=== PATIENT | male | born 1935 | race Caucasian/White ===

== ENCOUNTER 2017-02-27 13:35 | Observation (INO) ==
--- NOTE | 2017-02-27 14:09 | Emergency Department Note ---
Disposition Clinical Impression: Weakness on left side of face Cerebrovascular accident Qualifiers: CVA mechanism: unspecified Qualified Code(s): I63.9 - Cerebral infarction, unspecified Disposition: Admitted As Inpatient Condition: Fair Time of Disposition: 19:02 Neuro HPI - General Chief Complaint: ED Neuro Symptoms/Deficit Stated Complaint: Neuro Symptoms x3 days Time Seen by Provider: 02/27/17 13:49 Source: patient Limitations: no limitations Nursing Notes Reviewed: Yes Vital Signs Reviewed: Yes - History of Present Illness HPI Narrative: 81-year-old male who complains of left-sided facial droopiness 3 days. Patient has never had a history of CVA: TIA/stroke but has a cardiac history for A. fib, NE status post stents 2 in 1999 and and an late . Patient denies any chest pain. He states he has problems with closing his left eye, and keeping fluid in his mouth and periodic slurring his speech. Patient denies any viral symptoms over the past 3 weeks - Related Data Home Medications: Home Medications Medication Instructions Recorded Confirmed Aspirin [Lo-Dose Aspirin EC] 81 mg PO DAILY 02/27/17 02/27/17 B2/Vits A,C,E/Lut/Zeaxanth/Min 1 tab PO DAILY 02/27/17 02/27/17 [Icaps Tablet] Clopidogrel [Plavix] 75 mg PO DAILY 02/27/17 02/27/17 Metoprolol [Lopressor] 50 mg PO BID 02/27/17 02/27/17 Nitroglycerin [Nitrostat] 0.4 mg SL Q5M PRN 02/27/17 02/27/17 Omeprazole [PriLOSEC] 20 mg PO DAILY 02/27/17 02/27/17 Simvastatin [Zocor] 40 mg PO HS 02/27/17 02/27/17 metFORMIN [Glucophage] 500 mg PO BID 02/27/17 02/27/17 Allergies/Adverse Reactions: Allergies Allergy/AdvReac Type Severity Reaction Status Date / Time Penicillins [PCN] Allergy Hives Verified 02/27/17 13:38 All systems ED: reviewed and negative except as stated. Review of Systems: As Per HPI Constitutional: Denies: fever, chills, weakness ENT ED: Denies: congestion Cardiovascular: Denies: chest pain Respiratory: Denies: cough, dyspnea Gastrointestinal: Denies: abdominal pain, nausea, vomiting, diarrhea Genitourinary: Denies: urgency, dysuria, frequency Past Medical History - Past Medical History Attestation: Yes The following information was validated with the patient. Source: patient, nursing notes reviewed Medical history: Reports: atrial fibrillation, diabetes, hyperlipidemia, hypertension, myocardial infarction Psychiatric history: Reports: no psych history - Social History Smoking Status: Never smoker Smokeless Tobacco Status: No Alcohol use: Reports: rarely Drug use: Reports: none Physical Exam Vital Signs Temperature 97.5 F L 02/27/17 13:38 Pulse Rate 87 02/27/17 13:38 Respiratory Rate 14 02/27/17 13:38 Blood Pressure 163/87 02/27/17 13:38 O2 Sat by Pulse Oximetry 98 02/27/17 13:38 Temperature 97.5 F L 02/27/17 13:38 Pulse Rate 87 02/27/17 13:38 Respiratory Rate 14 02/27/17 13:38 Blood Pressure 163/87 02/27/17 13:38 O2 Sat by Pulse Oximetry 98 02/27/17 13:38 Oxygen Delivery Oxygen Delivery Room Air 81-year-old male who is alert and oriented 3 and in no acute distress. Patient has noticeable left-sided facial droop and has inability to fully close his left eye. Patient has no other focal neurologic deficits. No dysdiadochokinesis. Patient has no loss of sensation. Patient has inability to wrinkle her brow on his left side as well. - General Limitations: no limitations General appearance: alert - Head Head exam: atraumatic, normocephalic, normal inspection - Eye Eye exam: Present: normal appearance, PERRL, EOMI - ENT ENT exam: normal exam, normal oropharynx, mucous membranes moist - Neck Neck exam: Present: normal inspection, full ROM, trachea midline - Chest Chest inspection: Present: normal inspection, symmetric chest wall rise - Respiratory Respiratory exam: Present: normal lung sounds bilaterally - Cardiovascular Cardiovascular exam: Present: irregular rhythm, normal heart sounds - Abdominal Exam Abdominal exam: Present: soft, Non-Tender. Absent: tenderness, distention, guarding, rebound, rigidity - Extremities Exam Extremities exam: Present: normal inspection, full ROM, normal capillary refill. Absent: tenderness, pedal edema - Back Exam Back exam: Present: normal inspection, full ROM. Absent: tenderness - Neurological Exam Neurological exam: Present: alert, oriented X3, CN II-XII intact. Absent: motor sensory deficit - Skin Skin exam: Present: warm, dry, intact, normal color Course Vital Signs Temperature 97.5 F L 02/27/17 13:38 Pulse Rate 87 02/27/17 13:38 Respiratory Rate 14 02/27/17 13:38 Blood Pressure 163/87 02/27/17 13:38 O2 Sat by Pulse Oximetry 98 02/27/17 13:38 Temperature 97.4 F L 02/27/17 19:09 Pulse Rate 76 02/27/17 19:09 Respiratory Rate 20 02/27/17 19:09 Blood Pressure 152/74 02/27/17 19:09 O2 Sat by Pulse Oximetry 95 02/27/17 19:09 Oxygen Delivery Oxygen Delivery Room Air Neuro Symptoms/Deficit - MDM Narrative Medical decision making narrative: Differential diagnoses: CVA: Stroke/TIA, ischemic versus hemorrhagic but currently doubt hemorrhagic. Guillain-Babbitt which seems more likely at this period of time secondary of brow with left-sided facial drooping. Patient's lab workup was unremarkable. Patient's head imaging was unremarkable. Current plan is to admit for neurologic follow-up with neurology. After discussion with Dr. Rodrigues he states that he agrees with my assessment and states to place patient on acyclovir 800 mg IV and give him a dose of Solu-Medrol. Further workup will be accomplished to make sure no other intracranial abnormalities exist. This has been accomplished. Patient is doing well. Dr. Burnett the hospitalist has accepted patient for admission at 1508 hrs. - Lab Data Lab results reviewed: Yes I reviewed the patient's lab results. Lab results narrative: Short CBC 02/27/17 Range/Units 14:08 WBC 8.2 (4.3-11.1) K/mcL Hgb 15.8 (12.9-16.9) g/dL Hct 48.1 (37.5-50.1) % Plt Count 134 L (140-400) K/mcL Neutrophils # 5.2 (1.6-8.9) K/mcL BMP 02/27/17 Range/Units 14:08 Sodium 136 (136-145) mEq/L Potassium 4.4 (3.5-5.1) mEq/L Chloride 104 (98-107) mEq/L Carbon Dioxide 26 (23-29) mEq/L BUN 19 (8-23) mg/dL Creatinine 0.91 (0.70-1.30) mg/dL Glucose 158 H (70-105) mg/dL Calcium 9.7 (8.6-10.3) mg/dL Cardiac Enzymes 02/27/17 Range/Units 20:00 Troponin I < 0.03 (< 0.04) ng/mL Result diagrams: 02/27/17 14:08 02/27/17 14:08 Lab Results 02/27/17 02/27/17 02/27/17 Range/Units 13:41 14:08 14:08 WBC 8.2 (4.3-11.1) K/mcL RBC 5.56 H (4.19-5.50) M/mcL Hgb 15.8 (12.9-16.9) g/dL Hct 48.1 (37.5-50.1) % MCV 86.5 (83.0-100.0) fL MCH 28.4 (28.0-33.3) pg MCHC 32.8 (31.6-35.5) g/dL RDW 12.6 (11.5-14.5) % Plt Count 134 L (140-400) K/mcL MPV 11.7 (9.4-12.4) fL Immature Gran % 0.7 (0-4) % Seg Neutrophils % 63.0 % Lymphocytes % 25.5 % Monocytes % 8.9 % Eosinophils % 1.2 % Basophils % 0.7 % Neutrophils # 5.2 (1.6-8.9) K/mcL Lymphocytes # 2.1 (0.6-4.6) K/mcL Monocytes # 0.7 (0.0-1.3) K/mcL Eosinophils # 0.1 (0.0-0.6) K/mcL Basophils # 0.1 (0.0-0.2) K/mcL Sodium 136 (136-145) mEq/L Potassium 4.4 (3.5-5.1) mEq/L Chloride 104 (98-107) mEq/L Carbon Dioxide 26 (23-29) mEq/L BUN 19 (8-23) mg/dL Creatinine 0.91 (0.70-1.30) mg/dL Est GFR ( Amer) > 60 (> 60) Est GFR (Non-Af Amer) > 60 (> 60) BUN/Creatinine Ratio 21 (6-26) Glucose 158 H (70-105) mg/dL POC Glucose 169 H (58-89) Calculated Osmolality 288 (280-300) Calcium 9.7 (8.6-10.3) mg/dL 02/27/17 Range/Units 18:06 WBC (4.3-11.1) K/mcL RBC (4.19-5.50) M/mcL Hgb (12.9-16.9) g/dL Hct (37.5-50.1) % MCV (83.0-100.0) fL MCH (28.0-33.3) pg MCHC (31.6-35.5) g/dL RDW (11.5-14.5) % Plt Count (140-400) K/mcL MPV (9.4-12.4) fL Immature Gran % (0-4) % Seg Neutrophils % % Lymphocytes % % Monocytes % % Eosinophils % % Basophils % % Neutrophils # (1.6-8.9) K/mcL Lymphocytes # (0.6-4.6) K/mcL Monocytes # (0.0-1.3) K/mcL Eosinophils # (0.0-0.6) K/mcL Basophils # (0.0-0.2) K/mcL Sodium (136-145) mEq/L Potassium (3.5-5.1) mEq/L Chloride (98-107) mEq/L Carbon Dioxide (23-29) mEq/L BUN (8-23) mg/dL Creatinine (0.70-1.30) mg/dL Est GFR ( Amer) (> 60) Est GFR (Non-Af Amer) (> 60) BUN/Creatinine Ratio (6-26) Glucose (70-105) mg/dL POC Glucose 139 H (58-89) Calculated Osmolality (280-300) Calcium (8.6-10.3) mg/dL - Radiology Data Radiology results reviewed: Yes I reviewed the patient's radiology results. Head CT 02/27/17 13:49 IMPRESSION: No acute intracranial abnormality. D/ / Tommy Angeles MD / Tommy Angeles MD Interpreting Provider: Tommy Angeles MD Chest X-Ray 02/27/17 13:56 IMPRESSION: No new acute cardiopulmonary findings D/ / Monika Triana MD / Monika Triana MD Interpreting Provider: Monika Triana MD Brain MRI 02/27/17 19:24 IMPRESSION: Multifocal small-vessel ischemic change with multiple small prior infarcts No acute infarct, mass or acute hemorrhage. D/ / Segun Canales / Segun Canales Interpreting Provider: Segun Canales - EKG Data Rhythm: A.Fib [place]/QRS: normal Interpretation: unchanged when compared to prior tracing (date) NIH Stroke Scale - Level of Consciousness LOC: Alert - LOC Questions LOC Questions: Answers both correctly - LOC Commands LOC Commands: Performs both correctly - Best Gaze Best Gaze: Normal - Visual Visual: No visual loss - Facial Palsy Facial Palsy: Complete absence of movement in upper and lower face - Motor Arms Motor Arm-Left: No drift for 10 seconds Motor Arm-Right: No drift for 10 seconds - Motor Legs Motor Leg-Left: No drift for 5 seconds Motor Leg-Right: No drift for 5 seconds - Limb Ataxia Limb Ataxia: Absent of affected limb too weak to perform exam - Sensory Sensory: Normal - Best Language Best Language: No aphasia - Dysarthria Dysarthria: Normal - Extinction and Inattention Extinction and Inattention: Normal - NIHSS Total Score NIHSS Total Score: 3 TPA Checklist - LKW: 3-4.5 hrs Add. Warnings/Precautions Patient/family understanding: The patient/family members have been counseled and understood the risk, benefit , and alternatives of treatment.
--- NOTE | 2017-02-27 14:09 | Emergency Department Note ---
Disposition Clinical Impression: Weakness on left side of face Cerebrovascular accident Qualifiers: CVA mechanism: unspecified Qualified Code(s): I63.9 - Cerebral infarction, unspecified Disposition: Admitted As Inpatient Condition: Fair General Adult HPI - General Chief complaint: ED Neuro Symptoms/Deficit Stated complaint: Neuro Symptoms x3 days Time Seen by Provider: 02/27/17 13:49 Source: patient Limitations: no limitations Nursing Notes Reviewed: Yes Vital Signs Reviewed: Yes - History of Present Illness Pain Scale: 0 - Related Data Home Medications Medication Instructions Recorded Confirmed Aspirin [Lo-Dose Aspirin EC] 81 mg PO DAILY 02/27/17 02/27/17 B2/Vits A,C,E/Lut/Zeaxanth/Min 1 tab PO DAILY 02/27/17 02/27/17 [Icaps Tablet] Clopidogrel [Plavix] 75 mg PO DAILY 02/27/17 02/27/17 Metoprolol [Lopressor] 50 mg PO BID 02/27/17 02/27/17 Nitroglycerin [Nitrostat] 0.4 mg SL Q5M PRN 02/27/17 02/27/17 Omeprazole [PriLOSEC] 20 mg PO DAILY 02/27/17 02/27/17 Simvastatin [Zocor] 40 mg PO HS 02/27/17 02/27/17 metFORMIN [Glucophage] 500 mg PO BID 02/27/17 02/27/17 Allergies Allergy/AdvReac Type Severity Reaction Status Date / Time Penicillins [PCN] Allergy Hives Verified 02/27/17 13:38 Past Medical History - Past Medical History Medical history: Reports: atrial fibrillation, diabetes, hyperlipidemia, hypertension, myocardial infarction Psychiatric history: Reports: no psych history - Social History Smoking Status: Never smoker Smokeless Tobacco Status: No Alcohol use: Reports: rarely Drug use: Reports: none Physical Exam - General Limitations: no limitations General appearance: alert Course Vital Signs Temperature 97.5 F L 02/27/17 13:38 Pulse Rate 87 02/27/17 13:38 Respiratory Rate 14 02/27/17 13:38 Blood Pressure 163/87 02/27/17 13:38 O2 Sat by Pulse Oximetry 98 02/27/17 13:38 Temperature 97.4 F L 02/27/17 19:09 Pulse Rate 76 02/27/17 19:09 Respiratory Rate 20 02/27/17 19:09 Blood Pressure 152/74 02/27/17 19:09 O2 Sat by Pulse Oximetry 95 02/27/17 19:09 Oxygen Delivery Oxygen Delivery Room Air Medical Decision Making - MDM Narrative Medical decision making narrative: This documentation is done with the assistance of Dragon dictation. Despite efforts to ensure accuracy, there may be inaccuracies in art psychotherapist or spelling and typographical errors. I examined this patient and my medical decision-making was reviewed with the Resident Physician. I agree with the documented findings, disposition and treatment plan as described except to the extent set forth below. Patient seen and evaluated on arrival with Dr. Hartman, I agree with his evaluation management plan, I supervised the care of the patient's stay. Patient 3 days ago was brushing his teeth in the morning and noticed he cannot hold water and left side of his mouth he felt some weakness under his eye. He said it is difficult phrenic close both eyes because the left normal close ossicles the right. He does not have sparing of his forehead. This initially looks like a Hussein's palsy based on her speech is getting a little worsening his sensation weakness on his left side which he does not show on exam. Because this is 3 days ago this is outside the window for stroke alert. However he is getting worked up for stroke. And most likely will need admission. He is in agreement with plan. 1347 hrs.: Patient has an EKG showing possible atrial fibrillation, rate is 89 QRS is 88 QTc is 395 LVH by voltage criteria does have Q waves in inferior leads , when I compare this EKG had back in August it does show an atrial fibrillation and also. Head CT 02/27/17 13:49 IMPRESSION: No acute intracranial abnormality. D/ / Tommy Angeles MD / Tommy Angeles MD Interpreting Provider: Tommy Angeles MD Chest X-Ray 02/27/17 13:56 IMPRESSION: No new acute cardiopulmonary findings D/ / Monika Triana MD / Monika Triana MD Interpreting Provider: Monika Triana MD 1512 hrs. colon with this history this initially sound like a Hussein's palsy but with the extension worsening speech in the subjective weakness on the left side he needs to be ruled out for TIA and CVA. Were spoke with hospitalist agreed to the admission. We will also consult with neurology. Patient's in agreement with the stay. He is artery on aspirin and Plavix so we will give no other antiplatelet drugs at this time and less recommended by neurology. Patient's critical care time excluding any separately billable procedures is 20 minutes - Lab Data Result diagrams: 02/27/17 14:08 02/27/17 14:08 Lab Results 02/27/17 02/27/17 02/27/17 Range/Units 13:41 14:08 14:08 WBC 8.2 (4.3-11.1) K/mcL RBC 5.56 H (4.19-5.50) M/mcL Hgb 15.8 (12.9-16.9) g/dL Hct 48.1 (37.5-50.1) % MCV 86.5 (83.0-100.0) fL MCH 28.4 (28.0-33.3) pg MCHC 32.8 (31.6-35.5) g/dL RDW 12.6 (11.5-14.5) % Plt Count 134 L (140-400) K/mcL MPV 11.7 (9.4-12.4) fL Immature Gran % 0.7 (0-4) % Seg Neutrophils % 63.0 % Lymphocytes % 25.5 % Monocytes % 8.9 % Eosinophils % 1.2 % Basophils % 0.7 % Neutrophils # 5.2 (1.6-8.9) K/mcL Lymphocytes # 2.1 (0.6-4.6) K/mcL Monocytes # 0.7 (0.0-1.3) K/mcL Eosinophils # 0.1 (0.0-0.6) K/mcL Basophils # 0.1 (0.0-0.2) K/mcL Sodium 136 (136-145) mEq/L Potassium 4.4 (3.5-5.1) mEq/L Chloride 104 (98-107) mEq/L Carbon Dioxide 26 (23-29) mEq/L BUN 19 (8-23) mg/dL Creatinine 0.91 (0.70-1.30) mg/dL Est GFR ( Amer) > 60 (> 60) Est GFR (Non-Af Amer) > 60 (> 60) BUN/Creatinine Ratio 21 (6-26) Glucose 158 H (70-105) mg/dL POC Glucose 169 H (58-89) Calculated Osmolality 288 (280-300) Calcium 9.7 (8.6-10.3) mg/dL 02/27/17 Range/Units 18:06 WBC (4.3-11.1) K/mcL RBC (4.19-5.50) M/mcL Hgb (12.9-16.9) g/dL Hct (37.5-50.1) % MCV (83.0-100.0) fL MCH (28.0-33.3) pg MCHC (31.6-35.5) g/dL RDW (11.5-14.5) % Plt Count (140-400) K/mcL MPV (9.4-12.4) fL Immature Gran % (0-4) % Seg Neutrophils % % Lymphocytes % % Monocytes % % Eosinophils % % Basophils % % Neutrophils # (1.6-8.9) K/mcL Lymphocytes # (0.6-4.6) K/mcL Monocytes # (0.0-1.3) K/mcL Eosinophils # (0.0-0.6) K/mcL Basophils # (0.0-0.2) K/mcL Sodium (136-145) mEq/L Potassium (3.5-5.1) mEq/L Chloride (98-107) mEq/L Carbon Dioxide (23-29) mEq/L BUN (8-23) mg/dL Creatinine (0.70-1.30) mg/dL Est GFR ( Amer) (> 60) Est GFR (Non-Af Amer) (> 60) BUN/Creatinine Ratio (6-26) Glucose (70-105) mg/dL POC Glucose 139 H (58-89) Calculated Osmolality (280-300) Calcium (8.6-10.3) mg/dL
[2017-02-27 14:16] LABS: Basophils # 0.1 K/mcL (0.0-0.2); Basophils % 0.7 %; Eosinophils # 0.1 K/mcL (0.0-0.6); Eosinophils % 1.2 %; Hematocrit 48.1 % (37.5-50.1); Hemoglobin 15.8 g/dL (12.9-16.9); Immature Granulocytes % 0.7 % (0-4); Lymphocytes # 2.1 K/mcL (0.6-4.6); Lymphocytes % 25.5 %; Mean Corpuscular HGB Conc 32.8 g/dL (31.6-35.5); Mean Corpuscular Hemoglobin 28.4 pg (28.0-33.3); Mean Corpuscular Volume 86.5 fL (83.0-100.0); Mean Platelet Volume 11.7 fL (9.4-12.4); Monocytes # 0.7 K/mcL (0.0-1.3); Monocytes % 8.9 %; Neutrophils # 5.2 K/mcL (1.6-8.9); Platelet Count 134 K/mcL (140-400); Red Blood Count 5.56 M/mcL (4.19-5.50); Red Cell Distribution Width 12.6 % (11.5-14.5)
[2017-02-27 14:28] LABS: BUN/Creatinine Ratio 21 (6-26); Blood Urea Nitrogen 19 mg/dL (8-23); Calcium 9.7 mg/dL (8.6-10.3); Carbon Dioxide 26 mEq/L (23-29); Chloride 104 mEq/L (98-107); Glucose 158 mg/dL (70-105); Osmolality,Calculated 288 (280-300); Potassium 4.4 mEq/L (3.5-5.1); Sodium 136 mEq/L (136-145); eGFR For African Americans > 60 (> 60); eGFR For Non-African Americans > 60 (> 60)
[2017-02-27] MEDS ORDERED: methylPREDNISolone 125 MG/2 ML VIAL IVP ONE (15:49)
[2017-02-27] MEDS ORDERED: Acyclovir 800 MG in D5% in Water 250 ML IVPB ONE (15:49)
[2017-02-27] MEDS ORDERED: Ondansetron 4 MG/2 ML VIAL IVP PRN (19:20)
[2017-02-27] MEDS ORDERED: Naloxone 0.4 MG/ML INJ IVP PRN (19:20)
[2017-02-27] MEDS ORDERED: Acetaminophen 325 MG TABLET PO PRN (19:20)
--- NOTE | 2017-02-27 20:11 | Internal Med History&Physical ---
<Echo Esteves - Last Filed: 02/27/17 20:13> Date of Encounter: 02/27/17 Time of Encounter: 20:06 Assessment and Plan (1) CVA (cerebral vascular accident) Current visit: Yes Status: Suspected 1 3 days ago patient experienced left-sided facial droop as well as unable to close left eye. No facial paresthesia, no other focal deficits. He does have a history of paroxysmal atrial fibrillation which has vascular of 4 for age diabetes and hypertension. He states that he was supposed to start Eliquis, and stop Plavix in September however he could not afford the medication and continue with his Plavix. CT of head is negative for any intracranial abnormalities. We will obtain MRI. -NIHSS neuro assessment -He had bilateral carotid duplex in September 2016:The bilateral carotid arteries have minimal plaque throughout. -Echo was completed September 2016:Low normal LV systolic function. There is evidence of mild diastolic dysfunction of the left ventricle. Normal right ventricular size and function. Mild aortic regurgitation. Mild mitral regurgitation. Mild tricuspid regurgitation. Mild pulmonic regurgitation. No pulmonary hypertension. -Neurology has been consult to Qualifiers: CVA mechanism: unspecified Qualified Code(s): I63.9 - Cerebral infarction, unspecified (2) Diabetes mellitus Current visit: Yes Status: Acute Accu-Cheks before meals at bedtime with slight scale insulin will resume oral medications upon discharge Qualifiers: Diabetes mellitus type: type 2 Diabetes mellitus complication status: without complication Diabetes mellitus senior living insulin use: without exterminator termite use Qualified Code(s): E11.9 - Type 2 diabetes mellitus without complications (3) HTN (hypertension) Current visit: Yes Status: Acute Presently his blood pressure is controlled we will continue with home medications Qualifiers: Hypertension type: essential hypertension Qualified Code(s): I10 - Essential (primary) hypertension (4) Paroxysmal A-fib Current visit: Yes Status: Acute 1 patient is on metoprolol which we will continue-he was supposed to initiate Eliquis in September however was unable to afford he continued with aspirin and Plavix. His chads score is 4 for age diabetes and high blood pressure (5) DVT prophylaxis Current visit: Yes Status: Acute Lovenox subcutaneous Internal Medicine - H&P: HPI Chief complaint: L sided facial droop Admitted From: Emergency Dept Plans for Post Hospital Care: Home History of present illness: Mr. Wright is a 81 year old male past alcohol history of paroxysmal atrial fibrillation diabetes hyperlipidemia hypertension and DC. Approximately 3 days ago patient was brushing his teeth andthat he could not hold water on the left side of his mouth. He was also experiencing weakness on the left side of his face under his eye. He was having difficulty closing his left eye. He denies any vision changes difficulty chewing or swallowing or extremity weakness. He does have a history of CAD with a stent placed in 2009. As well as atrial fibrillation, he reports that in September 2016 he was seen by cardiology who advised him to stop Plavix and place him on Eliquis. However he did not take the Eliquis because he cannot afford the medication. He continued to take Plavix. He denies any previous strokes or head injuries. He presented to the ER with the above complaints. Lab work was obtained and was unremarkable chest x-ray was clear CT with no acute intracranial abnormalities. ER physician did speak with neurology is some concern for possible Krystal Acton patient was given Solu-Medrol and acyclovir. He has been admitted for further workup and evaluation. Presently patient does not appear to be in any respiratory distress and he is hemodynamically stable at this time. Past Med Surg Social Fam HX - Past Medical History Medical history: atrial fibrillation, diabetes, hyperlipidemia, hypertension, myocardial infarction Psychiatric history: no psych history - Social History Smoking Status: Never smoker Smokeless Tobacco Status: No Alcohol use: rarely Drug use: none - Family History Father Living Status: Age at : 83 Cause of : heart disease Internal Medicine - H&P: Meds Aspirin [Lo-Dose Aspirin EC] 81 mg PO DAILY 02/27/17 [History] B2/Vits A,C,E/Lut/Zeaxanth/Min [Icaps Tablet] 1 tab PO DAILY 02/27/17 [History] Clopidogrel [Plavix] 75 mg PO DAILY 02/27/17 [History] Metoprolol [Lopressor] 50 mg PO BID 02/27/17 [History] Nitroglycerin [Nitrostat] 0.4 mg SL Q5M PRN 02/27/17 [History] Omeprazole [PriLOSEC] 20 mg PO DAILY 02/27/17 [History] Simvastatin [Zocor] 40 mg PO HS 02/27/17 [History] metFORMIN [Glucophage] 500 mg PO BID 02/27/17 [History] 3 Allergy/AdvReac Type Severity Reaction Status Date / Time Penicillins [PCN] Allergy Hives Verified 02/27/17 13:38 All Systems PM: A 10-system review of systems was performed and is negative for pertinent findings except as documented above in the HPI. - Constitutional Constitutional: no chills, no fever(s), no night sweats - EENT Eyes: no change in vision, no discharge, no pain, no photophobia Nose, mouth and throat: no dysphagia, no nasal discharge, no neck pain, no sore throat - Cardiovascular Cardiovascular ROS IM: no chest pain, no diaphoresis, no dyspnea, no lightheadedness, no palpitations, no syncope - Respiratory Respiratory: no cough, no dyspnea, no wheezing, no excessive phlegm production - Gastrointestinal Gastrointestinal: no abdominal pain, no diarrhea, no hematemesis, no hematochezia, no melena, no nausea, no vomiting - Musculoskeletal Musculoskeletal ROS IM: no numbness, no tingling - Integumentary Integumentary IM: no rash, no unusual bruising - Neurological Neurological ROS: abnormal speech, other Additional comments: Left-sided facial droop-difficulty closing left eye - Constitutional Vitals: Temp Pulse Resp BP Pulse Ox 97.4 F L 76 20 152/74 95 02/27/17 19:09 02/27/17 19:09 02/27/17 19:09 02/27/17 19:09 02/27/17 19:09 General appearance: Present: A&O X 3 - Head Head exam: Present: atraumatic, normocephalic - Eye Eye exam: Present: PERRL, conjuntiva pink, sclera anicteric Pupils: Present: PERRL - Neck Neck exam general surgery: Present: supple, trachea midline. Absent: lymphadenopathy - Respiratory Respiratory exam: Present: CTAB. Absent: accessory muscle use, rales, rhonchi, wheezes - Cardiovascular Cardiovascular exam: Present: irregular rhythm, +S1, +S2. Absent: diastolic murmur, gallop, rubs, systolic murmur - GI/Abdominal GI/Abdominal exam: Present: normal bowel sounds, soft, no peritoneal signs. Absent: distended, tenderness - Extremities Exam Extremities exam: Present: warm, radial pulses palpable and symmetrical. Absent : calf tenderness, cyanotic, pedal edema - Neurological Exam Neurological exam: Present: oriented X3, no focal deficits, strengths equal and symetr throughout, facial droop. Absent: pronater drift, speech deficit - Expanded Neurological Exam Patient oriented to: Present: person, place, time Cranial Nerves: EOM's intact PM: Normal, gag reflex PM: Normal, nystagmus PM: Normal, tongue deviation PM: Abnormal Right Cerebellar function: finger to nose: Normal, heel to matos: Normal, Romberg: Normal Neuro motor strength exam: LUE: 5, RUE: 5, LLE: 5, RLE: 5 Coma Scale Eye Opening: Spontaneous Coma Scale Motor Response: Obeys Commands Coma Scale Verbal Response: Oriented Coma Scale Total: 15 - Skin Skin exam: Present: dry, intact Internal Med - H&P Results - Labs CBC & Chem 7: 02/27/17 14:08 02/27/17 14:08 - EKG Data Prior EKG available for review: yes EKG comments: 02/27/17 20:29 Atrial fibrillation - Diagnostic Studies Other Images Additional comments: Head CT 02/27/17 13:49 IMPRESSION: No acute intracranial abnormality. D/ / Tommy Angeles MD / Tommy Angeles MD Interpreting Provider: Tommy Angeles MD Chest X-Ray 02/27/17 13:56 IMPRESSION: No new acute cardiopulmonary findings D/ / Monika Triana MD / Monika Triana MD Interpreting Provider: Monika Triana MD <Anival Moscoso H - Last Filed: 02/27/17 22:26> Date of Encounter: 02/27/17 Internal Medicine - H&P: HPI History of present illness: Mr. Wright is a 81 year old male All Systems PM: A 10-system review of systems was performed and is negative for pertinent findings except as documented above in the HPI. - Constitutional Vitals: Temp Pulse Resp BP Pulse Ox 97.4 F L 76 20 152/74 95 02/27/17 19:09 02/27/17 19:09 02/27/17 19:09 02/27/17 19:09 02/27/17 19:09 Internal Med - H&P Results - Labs CBC & Chem 7: 02/27/17 14:08 02/27/17 14:08 Labs: Cardiac Enzymes 02/27/17 Range/Units 20:00 Troponin I < 0.03 (< 0.04) ng/mL - Impressions ITS Impressions Brain MRI 02/27/17 19:24 IMPRESSION: Multifocal small-vessel ischemic change with multiple small prior infarcts No acute infarct, mass or acute hemorrhage. 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 I have reviewed and agree with the care plan. History and Exam by me shows:
[2017-02-27] MEDS ORDERED: Nitroglycerin 0.4 MG TAB.SUBL SL PRN (20:31)
[2017-02-27] MEDS ORDERED: D5% in Water 1,000 ML IVC PRN (20:32)
[2017-02-27] MEDS ORDERED: Dextrose Gel 15 GM/37.5 ML TUBE PO PRN ×2 (20:32)
[2017-02-27] MEDS ORDERED: *HR* Dextrose 50 % in Water (Syg) 50 ML SYRINGE IVP PRN (20:32)
[2017-02-27] MEDS ORDERED: Insulin LISPRO 300 UNITS/3 ML VIAL SQ SCH (21:00)
[2017-02-27] MEDS ORDERED: *HR* Warfarin 5 MG TABLET PO SCH (22:24)
[2017-02-27] MEDS: *HR* Enoxaparin 80 MG/0.8 ML SYRINGE SQ SCH (22:53)
[2017-02-28 00:59] LABS: Basophils % 0.3 %; Hematocrit 44.9 % (37.5-50.1); Hemoglobin 15.5 g/dL (12.9-16.9); Immature Granulocytes % 0.7 % (0-4); Lymphocytes # 1.1 K/mcL (0.6-4.6); Lymphocytes % 15.2 %; Mean Corpuscular HGB Conc 34.5 g/dL (31.6-35.5); Mean Corpuscular Hemoglobin 29.2 pg (28.0-33.3); Mean Corpuscular Volume 84.6 fL (83.0-100.0); Mean Platelet Volume 12.2 fL (9.4-12.4); Monocytes # 0.1 K/mcL (0.0-1.3); Monocytes % 0.7 %; Neutrophils # 6.1 K/mcL (1.6-8.9); Platelet Count 124 K/mcL (140-400); Red Blood Count 5.31 M/mcL (4.19-5.50); Red Cell Distribution Width 12.5 % (11.5-14.5); Segmented Neutrophils % 83.1 %
[2017-02-28 01:24] LABS: BUN/Creatinine Ratio 19 (6-26); Blood Urea Nitrogen 18 mg/dL (8-23); Calcium 9.5 mg/dL (8.6-10.3); Carbon Dioxide 23 mEq/L (23-29); Chloride 103 mEq/L (98-107); Chol/HDL Ratio 3.7 (0-4.9); Cholesterol 159 mg/dL (< 200); Glucose 311 mg/dL (70-105); HDL Cholesterol 43 mg/dL (40-59); LDL Cholesterol,Calculated 101 mg/dL (0-99); Magnesium 1.9 mg/dL (1.6-2.6); Osmolality,Calculated 292 (280-300); Potassium 4.3 mEq/L (3.5-5.1); Sodium 134 mEq/L (136-145); Triglycerides 73 mg/dL (< 150); eGFR For African Americans > 60 (> 60); eGFR For Non-African Americans > 60 (> 60)
[2017-02-28] MEDS: *HR* Enoxaparin 80 MG/0.8 ML SYRINGE SQ SCH (05:43)
[2017-02-28] MEDS ORDERED: *HR* Enoxaparin 40 MG/0.4 ML SYRINGE SQ SCH (07:00)
[2017-02-28] MEDS ORDERED: Aspirin Enteric Coated 81 MG Tablet PO SCH (09:00)
[2017-02-28] MEDS: Insulin LISPRO 300 UNITS/3 ML VIAL SQ SCH ×2 (09:46→12:56)
--- NOTE | 2017-02-28 11:02 | Neurology - Consult Note ---
<Sonu Pepe - Last Filed: 02/28/17 12:57> Date of Encounter: 02/28/17 Time of Encounter: 10:56 Assessment and Plan (1) Weakness on left side of face Current Visit: Yes Status: Acute patient came in with left sided facial drooping, weakness, and increased left eye lacrimation Head CT unremarkable brain MRI showed multifocal small vessel ischemic changes with multiple prior small infarcts, but no acute mass effect or hemorrhage. lipid panel reviewed. echo from 10/10/16 showed LVEF 50%, normal LV systolif cuntion, mild diastolic dysfunciton, normal RV size and function, mild aortic regurg, mild mitral regurg , mild pulmonic regurg, no pulmonary HTN. Etiology likely secondary to [place] Palsy based on symptoms Plan: discharge on medrol dose pack please discharge on valcyclovir x7 days (2) Hussein's palsy Current Visit: Yes Status: Acute as above (3) Diabetes mellitus Current Visit: Yes Status: Acute per primary Qualifiers: Diabetes mellitus type: type 2 Diabetes mellitus complication status: without complication Diabetes mellitus medical terminologist insulin use: without medical terminologist use Qualified Code(s): E11.9 - Type 2 diabetes mellitus without complications (4) HTN (hypertension) Current Visit: Yes Status: Acute per primary Qualifiers: Hypertension type: essential hypertension Qualified Code(s): I10 - Essential (primary) hypertension (5) Paroxysmal A-fib Current Visit: Yes Status: Acute per primary History of Present Illness Chief complaint: left sided facial weakness HPI: Mr. Wright is a 81 year old male with PMHx of alcohol abuse, paroxysmal Afib, HTN , HLD, CAD with stent placed several years ago, hx of [place]. Patient arrived to [facility] yesterday with chief complaint of left sided facial weakness, predominantly on the left side of his mouth, and a little under his left eye. He also reported continues lacrimation from his left eye. Patient states these symptoms started on Saturday. He mostly had trouble holding water in his mouth. He also reported left sided facial drooping, which his said also started on saturday but has been getting progressively worse over the past few days. patient states that he has no prior history of strokes. Of note, he does have history of paroxysmal Afib. it was recommended by cardiology back in September that he be switched to Eliquis from plavix, but patient could not afford this. He is currently being bridged with lovenox and coumadin. patient denies nausea, vomiting, diarrhea,fever, chills, chest pain, shortness of breath. he denies any further problems today. Past Med Surg Social Fam HX - Past Medical History Medical history: atrial fibrillation, diabetes, hyperlipidemia, hypertension, myocardial infarction Psychiatric history: no psych history - Social History Smoking Status: Never smoker Smokeless Tobacco Status: No Alcohol use: rarely Drug use: none - Family History Father Adopted: No Hx Family Cardiac Disorders: Yes Medications and Allergies Aspirin [Lo-Dose Aspirin EC] 81 mg PO DAILY 02/27/17 [History] B2/Vits A,C,E/Lut/Zeaxanth/Min [Icaps Tablet] 1 tab PO DAILY 02/27/17 [History] Clopidogrel [Plavix] 75 mg PO DAILY 02/27/17 [History] Metoprolol [Lopressor] 50 mg PO BID 02/27/17 [History] Nitroglycerin [Nitrostat] 0.4 mg SL Q5M PRN 02/27/17 [History] Omeprazole [PriLOSEC] 20 mg PO DAILY 02/27/17 [History] Simvastatin [Zocor] 40 mg PO HS 02/27/17 [History] metFORMIN [Glucophage] 500 mg PO BID 02/27/17 [History] 3 Allergy/AdvReac Type Severity Reaction Status Date / Time Penicillins [PCN] Allergy Hives Verified 02/27/17 13:38 All Systems: A 10-system review of systems was performed and is negative for pertinent findings except as documented above in the HPI. - Constitutional Constitutional ROS IM: as per HPI Physical Examination - Vital Signs Vital Signs: Initial Vital Signs Temp Pulse Resp BP Pulse Ox 97.5 F L 87 14 163/87 98 02/27/17 13:38 02/27/17 13:38 02/27/17 13:38 02/27/17 13:38 02/27/17 13:38 - Constitutional General appearance: comfortable - Neurologic Sensorimotor examination: intact Detailed motor examination: grossly full strength in all extremities Motor examination - right side: 5/5: deltoids, biceps, triceps, wrist flexion, wrist extension, installation & maintenance executive, hip flexors, tibialis Anterior Motor examination - left side: 5/5: deltoids, biceps, triceps, wrist flexion, wrist extension, hip flexors, installation & maintenance executive, quadriceps Detailed sensory examination: intact Reflexes: Brachioradialis: 2+, Patella: 2+, Achilles: 2+ Mental Status Examination: awake, alert, oriented to person, oriented to place, oriented to time, follows commands appropriately, answers questions appropriately, no agnosia, no aphasia, no aproxia Cranial nerve examination: PERRL, EOMI, visual wolf intact, corneal reflexes brisk symmetrically, sensory to face intact Cranial Nerve Exam: facial nerve palsy: Left, facial droop: Left Cerebellar examination: no dysmetria, performs finger to nose and heel to matos symmetrically without ataxia Results - Laboratory Findings CBC and BMP: 02/28/17 00:32 02/28/17 00:32 Abnormal lab findings: Abnormal lab results Plt Count 124 K/mcL (140-400) L 02/28/17 00:32 Sodium 134 mEq/L (136-145) L 02/28/17 00:32 Glucose 311 mg/dL (70-105) H 02/28/17 00:32 POC Glucose 245 (58-89) H 02/27/17 19:15 LDL Cholesterol, Calc 101 mg/dL (0-99) H 02/28/17 00:32 Consult Discharge Plan - Plan Referrals: Frida Sparrow MD [Primary Care Provider] - <Sonny Rodrigues I - Last Filed: 02/28/17 13:09> Date of Encounter: 02/28/17 Assessment and Plan (1) Hussein's palsy Current Visit: Yes Status: Acute Patient was seen and examined agreed with Dr Pepe documentation, this patient symptoms and exam findings seems to be consistent with left peripheral seventh nerve palsy. " BELLS PALSY" His symptoms are subtle, he did not have decrease in forehead crease is as normally noted but did have a decrease in the eye blink and weakness of the left eyelid on examination. At the same time he did not have any other cranial nerve involvement needed any other focal motor deficit on his examination. It was suggested that he should be on acyclovir and steroids at the time of admission he has received a dose of Solu-Medrol and is also on antiviral agent I suggested that should continue orally for the next week or so. He is able to close the eyes do not think that he will require any eye patch but certainly would benefit from hydrating eyedrops. Sonny Rodrigues MD (2) Weakness on left side of face Current Visit: Yes Status: Acute PT seen and examined, patient has history of multiple risk factors for stroke , history of proximal atrial fibrillation was supposed to be on anticoagulation but he was not taking it due to the cost issues now he has been started on Coumadin, suggestive continue as per cardiology recommendation. His symptoms are not related to stroke and MRI of the brain also did not shows a evidence of any acute infarct he did have chronic infarction noted on MRI. He is to be on Coumadin suggest to discontinue antiplatelet therapy otherwise is at a slower bleeding complication would increase though he may continue on a baby aspirin if needed. He is also getting cardiac workup including carotid and echocardiogram. If all workup is negative patient is okay to discharge from neurology standpoint Follow-up in neurology clinic in 3-4 weeks Sonny Rodrigues MD History of Present Illness HPI: Mr. Wright is a 81 year old male All Systems: A 10-system review of systems was performed and is negative for pertinent findings except as documented above in the HPI. Physical Examination - Vital Signs Vital Signs: Initial Vital Signs Temp Pulse Resp BP Pulse Ox 97.5 F L 87 14 163/87 98 02/27/17 13:38 02/27/17 13:38 02/27/17 13:38 02/27/17 13:38 02/27/17 13:38 Results - Laboratory Findings CBC and BMP: 02/28/17 00:32 02/28/17 00:32 Abnormal lab findings: Abnormal lab results Plt Count 124 K/mcL (140-400) L 02/28/17 00:32 Sodium 134 mEq/L (136-145) L 02/28/17 00:32 Glucose 311 mg/dL (70-105) H 02/28/17 00:32 POC Glucose 245 (58-89) H 02/27/17 19:15 LDL Cholesterol, Calc 101 mg/dL (0-99) H 02/28/17 00:32
--- NOTE | 2017-02-28 15:21 | Discharge Summary ---
Date of Encounter: 02/28/17 Time of Encounter: 10:10 - Discharge Diagnosis (1) Hussein's palsy Priority: Primary Status: Acute Comments: Patient reported to the emergency department with three-day history of left- sided facial droop and difficulty closing left eye. There is no numbness or tingling or facial paresthesia. Patient has no other neurological deficits. The patient was admitted to rule out CVA or TIA. CT head is negative for any intercranial abnormalities. Brain MRI showed multifocal small vessel ischemic changes with multiple small prior infarcts, but nothing acute. Patient had an echocardiogram in September 2016 that showed preserved EF with mild LV DD, mild AR, mild MR, mild GA. Patient has been evaluated by neurology who agrees with diagnosis of Hussein's palsy. Patient with obvious left-sided deficit without any sensation loss or change. Patient is able to close left eye. Patient will be discharged with a Medrol Dosepak and also likely. For 7 days. Primary care follow-up within 7-10 days after discharge. (2) Diabetes mellitus Priority: Secondary Status: Chronic Comments: A1c 6.2%, continue home medications and accucheck schedule after discharge. Qualifiers: Diabetes mellitus type: type 2 Diabetes mellitus complication status: without complication Diabetes mellitus [facility] insulin use: without terminal gauger use Qualified Code(s): E11.9 - Type 2 diabetes mellitus without complications (3) HTN (hypertension) Priority: Secondary Status: Chronic Comments: Blood pressure has been stable. Continue home medications. Qualifiers: Hypertension type: essential hypertension Qualified Code(s): I10 - Essential (primary) hypertension (4) Paroxysmal A-fib Priority: Secondary Status: Acute Comments: Continue BB. Pt was to start Eliquis in September, but he was unable to afford the prescription, so he continued ASA and Plavix. Pt has been started on Warfarin this visit and will need to follow up with the [facility]. He has an appointment with cardiology tomorrow. I have completed and faxed the Coumadin clinic consultation form. I have given Mr. wright only a small amount of Coumadin in case he needs medication dosage changes. (5) Cerebrovascular accident Priority: Secondary Status: Ruled-out Qualifiers: CVA mechanism: unspecified Qualified Code(s): I63.9 - Cerebral infarction, unspecified (6) DVT prophylaxis Priority: Secondary Status: Acute Comments: SQ Lovenox - Discharge Medications Prescriptions: MethylPREDNISolone [MethylPREDNISolone Dose Pack] 4 mg PO DAILY #21 tab Valacyclovir HCl [Valtrex] 1,000 mg PO Q12H #14 tab Warfarin [Coumadin] 5 mg PO DAILY@1800 #10 tablet Home Medications: Aspirin [Lo-Dose Aspirin EC] 81 mg PO DAILY 02/27/17 [History] B2/Vits A,C,E/Lut/Zeaxanth/Min [Icaps Tablet] 1 tab PO DAILY 02/27/17 [History] Clopidogrel [Plavix] 75 mg PO DAILY 02/27/17 [History] Metoprolol [Lopressor] 50 mg PO BID 02/27/17 [History] Nitroglycerin [Nitrostat] 0.4 mg SL Q5M PRN 02/27/17 [History] Omeprazole [PriLOSEC] 20 mg PO DAILY 02/27/17 [History] Simvastatin [Zocor] 40 mg PO HS 02/27/17 [History] metFORMIN [Glucophage] 500 mg PO BID 02/27/17 [History] MethylPREDNISolone [MethylPREDNISolone Dose Pack] 4 mg PO DAILY #21 tab [Rx] Valacyclovir HCl [Valtrex] 1,000 mg PO Q12H #14 tab 02/28/17 [Rx] Warfarin [Coumadin] 5 mg PO DAILY@1800 #10 tablet 02/28/17 [Rx] Allergies/Adverse Reactions: 3 Allergy/AdvReac Type Severity Reaction Status Date / Time Penicillins [PCN] Allergy Hives Verified 02/27/17 13:38 Procedures/tests Complete & Pending: Procedures Performed prior 72 hours Category Date Time Status MR head/brain wo con [MR] Routine MRI 02/27/17 19:24 Completed EV echocardiogram Routine Y 02/28/17 20:03 Completed Date of admission: 02/27/17 18:32 Primary care physician: Frida Sparrow, Discharging clinician: Sofia Jones Anticipated date of discharge: 02/28/17 - Patient Status Disposition: Home, Self-Care Condition: Good Functional capacity at discharge: independent ambulation Overall status at discharge: patient is progressing back to baseline - Discharge Instructions Follow Up With: Frida Sparrow MD [Primary Care Provider] - Additional Instructions: Follow up with pcp in the next 7-10 days for a recheck. Take your medications as directed. Return to the ER if your condition worsens or changes. Resume your normal home medications. Your prescriptions have been called in to your pharmacy, take as directed. REturn to your normal activities and diet as tolerated. - Diet and Activity Activity: increase activity as tolerated Diet: diabetic diet, low fat, low cholesterol Hospital course: Mr. Wright is a 81 year old male with past medical history of diabetes, hypertension who presented to emergency department with left-sided facial droop and weakness. Patient was diagnosed with Hussein's palsy will be sent home with valacyclovir for 7 days and a Medrol Dosepak for treatment. Patient also has paroxysmal A. fib and was placed on Eliquis in September. He was unable to afford the prescription and continued with his aspirin and Plavix. He has been placed on Coumadin here by the admitting provider. I have discussed this with cardiology [employer] who states patient will need to go to the Coumadin clinic. Currently is on 5 mg daily. He has appointment with cardiology tomorrow. Patient is stable and appropriate for discharge. - Time Spent with Patient Total time spent providing and/or coordinating discharge services: Less than 30 minutes - Constitutional Vitals: Temp Pulse Resp BP Pulse Ox 97.5 F L 67 16 127/69 94 02/28/17 11:13 02/28/17 11:13 02/28/17 11:13 02/28/17 11:13 02/28/17 11:13 General appearance: Present: cooperative, A&O X 3, pleasant, no acute distress, answers questions appropriately - Head Head exam: Present: atraumatic, normal inspection, normocephalic - Eye Eye exam: Present: normal appearance, conjuntiva pink, sclera anicteric - Neck Neck exam general surgery: Present: supple, trachea midline. Absent: lymphadenopathy, tenderness - Respiratory Respiratory exam: Present: CTAB. Absent: accessory muscle use, chest wall tenderness, rales, respiratory distress, rhonchi, wheezes - Cardiovascular Cardiovascular exam: Present: RRR, +S1, +S2. Absent: diastolic murmur, gallop, rubs, systolic murmur - GI/Abdominal GI/Abdominal exam: Present: normal bowel sounds, soft. Absent: distended, tenderness - Extremities Exam Extremities exam: Present: normal capillary refill, warm, radial pulses palpable and symmetrical. Absent: calf tenderness, cyanotic, pedal edema - Neurological Exam Neurological exam: Present: alert, oriented X3, strengths equal and symetr throughout, facial droop. Absent: altered, CN II-XII intact, motor sensory deficit, pronater drift, speech deficit - Skin Skin exam: Present: dry, intact, normal color, warm. Absent: rash
[2017-02-28 16:05] VITALS: BP 145/71
--- NOTE | 2017-02-28 19:16 | Electrocardiograph Report ---
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
== END 2017-02-28 16:30 | disposition home or self-care (01) ==
LOC: 3BNU 13:35 → EMEROO 13:35 → 3BNU 19:07
PROVIDERS: ADMIT Pediatrics; ATTEND Registered Nurse

== ENCOUNTER 2019-01-27 10:01 | Observation (INO) ==
[2019-01-27] MEDS ORDERED: *HR* EPINEPHrine 1 MG/10 ML SYRINGE IVP ONE (10:02)
[2019-01-27] MEDS ORDERED: ISOVUE-370 200 ML INFUS..BTL ONE (10:12)
[2019-01-27] MEDS ORDERED: *HR* Heparin 10,000 UNIT/10 ML VIAL ONE (10:12)
[2019-01-27] MEDS ORDERED: Nitroglycerin 1,000 MCG/10 ML VIAL IV ONE (10:12)
[2019-01-27] MEDS ORDERED: Heparin 1,000 UNITS/500 mL 500 ML ONE (10:12)
[2019-01-27] MEDS ORDERED: 0.9 % Sodium Chloride 1,000 ML IVC SCH ×2 (10:15→13:15)
[2019-01-27] MEDS ORDERED: *HR* FentaNYL (PF) 100 MCG/2 ML VIAL ONE (10:43)
[2019-01-27] MEDS ORDERED: *HR* Midazolam HCl 2 MG/2 ML VIAL ONE (10:43)
[2019-01-27] MEDS ORDERED: *HR* Bivalirudin 250 MG VIAL IVC ONE (11:53)
[2019-01-27] MEDS ORDERED: Nitroglycerin 0.4 MG TAB.SUBL SL PRN (13:14)
[2019-01-27] MEDS: Acetaminophen 325 MG TABLET PO PRN ×2 (14:53→20:41)
[2019-01-27] MEDS ORDERED: *HR* Atropine Sulfate 1 MG/10 ML SYRINGE ONE (17:05)
[2019-01-27] MEDS ORDERED: Ondansetron 4 MG/2 ML VIAL IVP PRN (22:18)
[2019-01-27] MEDS: Morphine Sulfate 2 MG/ML SYRINGE IVP PRN (23:00)
[2019-01-28] MEDS: Acetaminophen 325 MG TABLET PO PRN (01:42)
[2019-01-28 01:59] LABS: Hematocrit 37.7 % (37.5-50.1)
[2019-01-28 02:20] LABS: BUN/Creatinine Ratio 16 (6-26); Blood Urea Nitrogen 18 mg/dL (8-23); eGFR For African Americans > 60 (> 60); eGFR For Non-African Americans > 60 (> 60)
[2019-01-28] MEDS: Morphine Sulfate 2 MG/ML SYRINGE IVP PRN (03:04)
[2019-01-28] MEDS ORDERED: Apixaban 5 MG TABLET PO SCH (09:00)
[2019-01-28] MEDS ORDERED: Aspirin Enteric Coated 81 MG Tablet PO SCH (09:00)
[2019-01-28] MEDS ORDERED: Cyanocobalamin (B-12) 1,000 MCG TABLET PO SCH (09:00)
[2019-01-28 11:44] VITALS: BP 132/84
[2019-01-28 13:34] LABS: Hematocrit 41.6 % (37.5-50.1); Hemoglobin 14.3 g/dL (12.9-16.9); Mean Corpuscular HGB Conc 34.4 g/dL (31.6-35.5); Mean Corpuscular Hemoglobin 29.4 pg (28.0-33.3); Mean Corpuscular Volume 85.6 fL (83.0-100.0); Mean Platelet Volume 11.4 fL (9.4-12.4); Platelet Count 128 K/mcL (140-400); Red Blood Count 4.86 M/mcL (4.19-5.50); White Blood Count 7.2 K/mcL (4.3-11.1)
== END 2019-01-28 15:47 | disposition home or self-care (01) ==
LOC: 2NNU 10:01 → INVDIALAB 10:01 → 2NNU 14:23 → INVDIALAB 01-28 15:47 → 2NNU 01-28 17:48
PROVIDERS: ADMIT Internal Medicine Interventional Cardiology; ATTEND Internal Medicine Interventional Cardiology